=== PATIENT | female | born 1955 ===

== ENCOUNTER → 2023-02-04 | Outpatient (CLI) | payer SELFPAY ==
[2023-02-04 13:28] LABS: Allen Test Positive; Base Excess -10 mmol/L (-2 to +2); Bicarbonate 19.8 mmol/L (22-26); Blood Gas Specimen Type ART; O2 Delivery Device Cannula; PO2 102 mmHG (75-100); SITE R Radial; SO2 94 % (95-99); Total Carbon Dioxide 22 mmol/L; pH 7.07 (7.35-7.45)
[2023-02-06 09:39] LABS: Base Excess 11 mmol/L (-2 to +2); Bicarbonate 30.3 mmol/L (22-26); Blood Gas Specimen Type ART; Mode AC; O2 Delivery Device Adult Vent; PEEP 5; PO2 185 mmHG (75-100); RR 30; SITE Art Line; SO2 100 % (95-99); Total Carbon Dioxide 31 mmol/L; pCO2 23.4 mmHg (35-45); pH 7.72 (7.35-7.45)
[2023-02-21 09:51] LABS: Blood Gas Specimen Type CORDART; CORD ABG SO2 100 % (15-45); Cord ABG Base Excess 12 mmol/L (-4-2); Cord ABG PO2 194 mmHG (10-35); Cord ABG Total Carbon Dioxide 32 mmol/L; Cord ABG pCO2 22.6 mmHg (40-60); Cord ABG pH 7.75 (7.20-7.35); O2 Delivery Device Cannula; PEEP 3; RR 35; SITE L Radial
[2023-02-21 10:09] LABS: Blood Gas Specimen Type CORDART; CORD ABG Bicarbonate 31 mmol/L (21-27); CORD ABG SO2 100 % (15-45); Cord ABG Base Excess 12 mmol/L (-4-2); Cord ABG PO2 194 mmHG (10-35); Cord ABG Total Carbon Dioxide 32 mmol/L; Cord ABG pCO2 22.6 mmHg (40-60); Cord ABG pH 7.75 (7.20-7.35); O2 Delivery Device Cannula; SITE L Radial
[2023-02-21 10:21] LABS: Base Excess 11 mmol/L (-2 to +2); Bicarbonate 30.8 mmol/L (22-26); Blood Gas Specimen Type ART; MAP 5; Mode AC; O2 Delivery Device Adult Vent; PEEP 5; PIP 5; PO2 197 mmHG (75-100); RR 15; SITE L Brach; SO2 100 % (95-99); Total Carbon Dioxide 32 mmol/L; pH 7.74 (7.35-7.45)
[2023-02-21 10:22] LABS: Allen Test Negative; Base Excess 12 mmol/L (-2 to +2); Bicarbonate 31.4 mmol/L (22-26); Blood Gas Specimen Type ART; MAP 7; Mode BiLevel; PEEP 9; PIP 6; PO2 182 mmHG (75-100); RR 20; SITE R Radial; SO2 100 % (95-99); Total Carbon Dioxide 32 mmol/L; pCO2 23.6 mmHg (35-45); pH 7.73 (7.35-7.45)
[2023-02-21 10:23] LABS: Blood Gas Specimen Type VEN; MAP 1; PEEP 5; PIP 8; RR 55; VBG BASE EXCESS 12 mmol/L (-1.0-3.5); VBG Bicarbonate 32 mmol/L (22-26); VBG PO2 189 mmHg (25-40); VBG SO2 100 % (50-70); VBG TCO2 32 mmol/L (23-33); VBG pH 7.73 (7.32-7.42)
[2023-02-21 10:23] LABS: Blood Gas Specimen Type VEN; MAP 11; PEEP 6; PIP 10; RR 16; VBG BASE EXCESS 12 mmol/L (-1.0-3.5); VBG Bicarbonate 31 mmol/L (22-26); VBG PO2 192 mmHg (25-40); VBG SO2 100 % (50-70); VBG TCO2 32 mmol/L (23-33); VBG pCO2 22.6 mmHg (41-51); VBG pH 7.74 (7.32-7.42)
[2023-02-21 10:23] LABS: Allen Test Positive; Base Excess 13 mmol/L (-2 to +2); O2 Delivery Device Bagging; PEEP 355; PO2 191 mmHG (75-100); RR 501; SITE L Radial; SO2 100 % (95-99); pCO2 23.5 mmHg (35-45); pH 7.74 (7.35-7.45)
[2023-02-21 10:23] LABS: Allen Test Positive; Base Excess 8 mmol/L (-2 to +2); O2 Delivery Device NRB; PEEP 7; PO2 194 mmHG (75-100); RR 17; SITE UVC; SO2 100 % (95-99); pCO2 21.5 mmHg (35-45); pH 7.72 (7.35-7.45)
[2023-02-21 10:28] LABS: CORD VBG BASE EXCESS 12 mmol/L (-2-2); CORD VBG Bicarbonate 30.8 mmol/L; CORD VBG SO2 100 % (95-99); CORD VBG Total Carbon Dioxide 32 mmol/L; CORD VBG pH 7.74 (7.32-7.42)
[2023-02-21 11:45] LABS: Blood Gas Specimen Type CORDART; CORD ABG Bicarbonate 31 mmol/L (21-27); CORD ABG SO2 100 % (15-45); Cord ABG Base Excess 12 mmol/L (-4-2); Cord ABG PO2 194 mmHG (10-35); Cord ABG Total Carbon Dioxide 32 mmol/L; Cord ABG pCO2 22.6 mmHg (40-60); Cord ABG pH 7.75 (7.20-7.35)
[2023-02-21 11:46] LABS: Base Excess 11 mmol/L (-2 to +2); Bicarbonate 30.8 mmol/L (22-26); Blood Gas Specimen Type ART; MAP 5; Mode AC; O2 Delivery Device Adult Vent; PEEP 5; PIP 5; PO2 197 mmHG (75-100); RR 15; SITE L Brach; SO2 100 % (95-99); Total Carbon Dioxide 32 mmol/L; pH 7.74 (7.35-7.45)
[2023-02-21 16:48] LABS: Base Excess -11 mmol/L (-2 to +2); Bicarbonate 19.4 mmol/L (22-26); O2 Delivery Device NRB; PEEP 5; PO2 106 mmHG (75-100); RR 59; SITE R Heel; SO2 95 % (95-99); pCO2 69.1 mmHg (35-45); pH 7.06 (7.35-7.45)
[2023-02-21 16:50] LABS: Allen Test Negative; Base Excess -11 mmol/L (-2 to +2); Bicarbonate 19.2 mmol/L (22-26); Blood Gas Specimen Type ART; MAP 6; Mode Not entered; O2 Delivery Device BiPAP; PEEP 1; PIP 5; PO2 71 mmHG (75-100); RR 56; SITE R Fem; SO2 84 % (95-99); Total Carbon Dioxide 21 mmol/L; pH 7.04 (7.35-7.45)
[2023-02-21 16:50] LABS: CORD VBG BASE EXCESS -11 mmol/L (-2-2); CORD VBG Bicarbonate 19.3 mmol/L; CORD VBG SO2 98 % (95-99); CORD VBG Total Carbon Dioxide 21 mmol/L; CORD VBG pH 7.09 (7.32-7.42)
[2023-02-21 16:50] LABS: Blood Gas Specimen Type VEN; MAP 16; PEEP 11; PIP 15; RR 25; VBG BASE EXCESS -11 mmol/L (-1.0-3.5); VBG Bicarbonate 19 mmol/L (22-26); VBG PO2 81 mmHg (25-40); VBG SO2 89 % (50-70); VBG TCO2 21 mmol/L (23-33); VBG pCO2 68.9 mmHg (41-51); VBG pH 7.05 (7.32-7.42)
[2023-03-12 09:01] LABS: Total Carbon Dioxide 0 mmol/L
[2023-03-18 10:41] LABS: Allen Test Positive; Base Excess -11 mmol/L (-2 to +2); Bicarbonate 19.9 mmol/L (22-26); Blood Gas Specimen Type ART; MAP 2; Mode AC; O2 Delivery Device Adult Vent; PEEP 8; PIP 8; PO2 83 mmHG (75-100); RR 28; SITE Art Line; SO2 89 % (95-99); Total Carbon Dioxide 21 mmol/L; pCO2 71.5 mmHg (35-45); pH 7.05 (7.35-7.45)
[2023-03-18 10:42] LABS: Allen Test Positive; Base Excess 9 mmol/L (-2 to +2); Bicarbonate 28.9 mmol/L (22-26); Blood Gas Specimen Type ART; Mode Not entered; O2 Delivery Device Bagging; PO2 192 mmHG (75-100); SITE L Brach; SO2 100 % (95-99); Total Carbon Dioxide 29 mmol/L; pCO2 22.5 mmHg (35-45); pH 7.72 (7.35-7.45)
[2023-03-18 10:44] LABS: Blood Gas Specimen Type CORDART; CORD ABG Bicarbonate 30 mmol/L (21-27); CORD ABG SO2 100 % (15-45); Cord ABG Base Excess 10 mmol/L (-4-2); Cord ABG PO2 191 mmHG (10-35); Cord ABG Total Carbon Dioxide 30 mmol/L; Cord ABG pCO2 22.9 mmHg (40-60); Cord ABG pH 7.72 (7.20-7.35)
[2023-03-18 11:05] LABS: Base Excess -11 mmol/L (-2 to +2); Bicarbonate 19.4 mmol/L (22-26); Mode PRVC; O2 Delivery Device NRB; PEEP 5; PO2 106 mmHG (75-100); RR 59; SITE R Heel; SO2 95 % (95-99); Total Carbon Dioxide 22 mmol/L; pCO2 69.1 mmHg (35-45); pH 7.06 (7.35-7.45)
== END | disposition home or self-care (01) ==
LOC: LABSURVEY 11:21
PROVIDERS: Visit Provider Pathology Anatomic Pathology & Clinical Pathology
DX: Z00.00 Encounter for general adult medical examination without abnormal findings (principal)
CPT/HCPCS: 82803

== ENCOUNTER → 2023-04-08 | Outpatient (CLI) | payer SELFPAY ==
[2023-04-08 11:23] LABS: Allen Test Negative; Base Excess -11 mmol/L (-2 to +2); Base Excess -12 mmol/L (-2 to +2); Bicarbonate 18.7 mmol/L (22-26); Bicarbonate 19.6 mmol/L (22-26); Blood Gas Specimen Type ART; Blood Gas Specimen Type Capillary; Blood Gas Specimen Type VEN; Comment 11111; MAP 1; MAP 5; Mode BiLevel; Mode PS; O2 Delivery Device Cannula; O2 Delivery Device ET Tube; O2 Delivery Device NRB; PEEP 1; PEEP 3; PEEP 5; PIP 1; PIP 5; PO2 103 mmHG (75-100); PO2 105 mmHG (75-100); RR 10; RR 33; RR 5; SITE L Brach; SITE R Brach; SITE R Radial; SO2 94 % (95-99); Total Carbon Dioxide 21 mmol/L; Total Carbon Dioxide 22 mmol/L; VBG BASE EXCESS -11 mmol/L (-1.0-3.5); VBG Bicarbonate 20 mmol/L (22-26); VBG PO2 100 mmHg (25-40); VBG SO2 94 % (50-70); VBG TCO2 22 mmol/L (23-33); VBG pCO2 70.5 mmHg (41-51); VBG pH 7.05 (7.32-7.42); pCO2 69.1 mmHg (35-45); pCO2 69.6 mmHg (35-45); pH 7.04 (7.35-7.45); pH 7.06 (7.35-7.45)
[2023-04-08 11:24] LABS: Blood Gas Specimen Type CORDART; Blood Gas Specimen Type CORDVEN; CORD ABG Bicarbonate 19 mmol/L (21-27); CORD ABG SO2 95 % (15-45); CORD VBG BASE EXCESS -11 mmol/L (-2-2); CORD VBG Bicarbonate 19.3 mmol/L; CORD VBG PO2 111 mmHg (25-40); CORD VBG SO2 95 % (95-99); CORD VBG Total Carbon Dioxide 21 mmol/L; CORD VBG pCO2 67.4 mmHg (41-51); CORD VBG pH 7.07 (7.32-7.42); Cord ABG Base Excess -11 mmol/L (-4-2); Cord ABG PO2 111 mmHG (10-35); Cord ABG Total Carbon Dioxide 21 mmol/L; Cord ABG pCO2 67.9 mmHg (40-60); Cord ABG pH 7.06 (7.20-7.35)
[2023-04-08 12:07] LABS: Blood Gas Specimen Type CORDVEN; CORD VBG BASE EXCESS -11 mmol/L (-2-2); CORD VBG Bicarbonate 19.8 mmol/L; CORD VBG PO2 74 mmHg (25-40); CORD VBG SO2 86 % (95-99); CORD VBG Total Carbon Dioxide 22 mmol/L; CORD VBG pCO2 69.4 mmHg (41-51); CORD VBG pH 7.06 (7.32-7.42)
[2023-04-08 12:10] LABS: Blood Gas Specimen Type CORDART; CORD ABG Bicarbonate 19 mmol/L (21-27); CORD ABG SO2 85 % (15-45); Cord ABG Base Excess -11 mmol/L (-4-2); Cord ABG PO2 73 mmHG (10-35); Cord ABG Total Carbon Dioxide 21 mmol/L; Cord ABG pCO2 68.8 mmHg (40-60); Cord ABG pH 7.06 (7.20-7.35)
[2023-04-08 12:14] LABS: Blood Gas Specimen Type VEN; MAP 6; O2 Delivery Device Bagging; PEEP 6; PIP 6; RR 6; SITE L Radial; VBG BASE EXCESS -11 mmol/L (-1.0-3.5); VBG Bicarbonate 19 mmol/L (22-26); VBG PO2 122 mmHg (25-40); VBG SO2 97 % (50-70); VBG TCO2 21 mmol/L (23-33); VBG pCO2 67.2 mmHg (41-51); VBG pH 7.07 (7.32-7.42)
[2023-04-08 12:14] LABS: Allen Test Positive; Base Excess -11 mmol/L (-2 to +2); Bicarbonate 18.9 mmol/L (22-26); Blood Gas Specimen Type Capillary; PEEP 8; PO2 84 mmHG (75-100); RR 8; SITE R Fem; SO2 90 % (95-99); Total Carbon Dioxide 21 mmol/L; pCO2 66.6 mmHg (35-45); pH 7.06 (7.35-7.45)
== END | disposition home or self-care (01) ==
LOC: LABSURVEY 09:37
PROVIDERS: Visit Provider Pathology Anatomic Pathology & Clinical Pathology
DX: Z00.00 Encounter for general adult medical examination without abnormal findings (principal)
CPT/HCPCS: 82803